=== PATIENT | male | born 1930 | race Caucasian/White ===

== ENCOUNTER → 2017-06-28 | Outpatient (CLI) | payer MEDICARE ==
[~2017-06-28] MED LIST: ACET500; ALBU90OI; AMOCLA500 PO; AMPI500 PO; ASCO500 PO; ASPI81EC PO; BLINK TEARS; BUDE6HFA; CALMAGZIN PO; CHOL10002 PO; DOCU100 PO; FENT50TP TOP; FLUSAL2505 IH; FLUT.05NI; GLUCOSAMINE &1 EACH PO; HYDACE5 PO; HYDR1TAB94 PO; IBUP400 PO; LEVFLO500 PO; LORA1; NASAL SPRAY; NITR.6SL; PRED10 PO; PRED20; PRED20 PO; PSYL5.85P; SENN187 PO; TRIAOI IH; VITAMIN D32000 UNIT PO; [UNRECOGNIZED DRUG - OTHER] PO
== END | disposition home or self-care (01) ==
LOC: LAB SHORT 08:10 → PLD 08:10
DX: C44.619 Basal cell carcinoma of skin of left upper limb, including shoulder (principal); L57.8 Other skin changes due to chronic exposure to nonionizing radiation
CPT/HCPCS: 88305